=== PATIENT | male | born 1965 | race Caucasian/White ===

== ENCOUNTER → 2017-06-24 | Outpatient (CLI) | payer MEDICAID ==
[~2017-06-24] MED LIST: ALBUTEROL-200 PUFFS/ IH; AMOXICILLIN500 M2 PO; ATENOLOL50 M1 PO; ATORVASTATIN CA80 MG PO; AUGMENTIN1 TA2 PO; BISOPROLOL 5MG T5 MG PO; ETODOLAC400 MG PO; FLEXERIL10 MG PO; GABAPENTIN 600600 MG PO; HYDROCHLOROTH12.5 M1 PO; HYDROCHLOROTHIA25 M1 PO; HYDROCODONE-APA1 TA2 PO; LISINOPRIL 20MG20 MG PO; LOW DOSE ASPIRI81 MG PO; METOPROLOL25 MG PO; NORCO 325 MG-51 TAB PO; PERCOCET 10 MG1 EACH PO; PREDNISONE 20MG20 MG PO; PROZAC20 MG PO; ROPINIROLE 0.0.25 MG PO; SYMBICORT1 AER IH
[2017-06-24 19:13] LABS: AMPHETAMINES/METAMPHETAMINES NEGATIVE ng/mL (<1000)
== END ==
LOC: LAB 17:40
PROVIDERS: Emergency Medicine
DX: Z79.899 Other long term (current) drug therapy (principal)